=== PATIENT | female | born 1935 | race Caucasian/White ===

== ENCOUNTER 2020-09-04 13:02 | Day surgery (SDC) | payer MEDICARE ==
[2020-08-30 12:43] LABS: Hemoglobin 9.9 g/dL (12.2-16.2); Mean Corpuscular Hemoglobin 30.3 pg (28.0-32.0); Mean Corpuscular Volume 91.7 fL (80.0-100.0); Red Blood Cells 3.27 10^6/uL (4.0-5.20); Red Cell Distribution Width 19.5 % (11.8-14.3); White Blood Cell 17.8 10^3/uL (4.4-10.8)
[2020-08-30 12:44] LABS: Basophils % (manual) 0 (0.0-2.0); Blast Cells 0; Monocytes % (manual) 0 (0-12); Promyelocytes % 0; Reactive Lymphocytes 0
[2020-08-30 12:50] LABS: Urine Bacteria NONE SEEN /hpf (None Seen); Urine Blood Negative /uL (Negative); Urine Specific Gravity 1.009 (1.001-1.035); Urine WBC 1 /hpf (0 - 5)
[2020-08-30 13:09] LABS: Band Neutrophils % (manual) 3; Eosinophils % (manual) 2 (0-7); Lymphocytes % (manual) 6 (10.0-50.0); Metamyelocytes % 1; Myelocytes % 4
[2020-08-30 13:19] LABS: Albumin 3.6 g/dL (3.4-5.0); Calcium 8.5 mg/dL (8.5-10.1); Potassium 3.6 mmol/L (3.5-5.1)
[2020-08-30 13:22] LABS: BUN/Creatinine Ratio 16.3; Bilirubin, Total 0.9 mg/dL (0.2-1.0); Total Protein 7.7 g/dL (6.4-8.2)
[~2020-09-04] VITALS: Ht 152.4 cm; Wt 61.2 kg
[~2020-09-04 13:02] MED LIST: ALEN70TA74 PO; ALL100T PO; ASPI-231 PO; CALC667C5 PO; FOLITAB22 PO; FURO20TA3 PO; HYDR50TA15 PO; IBUP800T27 PO; LEVO25TA6 PO; LOVA40TA72 PO; METO1TAB77 PO; ROPI1TAB4 PO
[2020-09-04] MEDS: MIDAZOLAM HCL 5 MG/ML-1ML VIAL ONE ×2 (14:42→14:45)
[2020-09-04] MEDS: fentaNYL CITRATE 100 MCG/2 ML VL ONE ×2 (14:42→14:45)
[2020-09-04 15:30] VITALS: BP 176/64
[2020-09-04] MEDS ORDERED: diphenhdrAMINE HCL 50 MG/1 ML VL ONE (16:42)
== END 2020-09-04 15:45 | disposition home or self-care (01) ==
LOC: GI 13:02
PROVIDERS: ATTEND Internal Medicine Gastroenterology
DX: R19.4 Change in bowel habit (principal); K57.30 Diverticulosis of large intestine without perforation or abscess without bleeding; K64.8 Other hemorrhoids; J45.909 Unspecified asthma, uncomplicated; E78.5 Hyperlipidemia, unspecified; I10 Essential (primary) hypertension; Z79.82 Long term (current) use of aspirin; Z20.822 Contact with and (suspected) exposure to COVID-19; Z79.899 Other long term (current) drug therapy; Z88.0 Allergy status to penicillin
CPT/HCPCS: 36415; 45378; 80053; 81001; 85007; 85027; J1200; J2250; J3010; J7030; U0003; G0500

== ENCOUNTER 2021-05-28 19:38 | Emergency (ER) | payer MEDICARE ==
[~2021-05-28] VITALS: Ht 152.4 cm; Wt 59.0 kg
[~2021-05-28 19:38] MED LIST changes: -ASPI-231 PO; +ASPI1TAB20 PO
[2021-05-28 20:52] LABS: Hemoglobin 11.9 g/dL (12.2-16.2); Mean Corpuscular Hemoglobin 29.9 pg (28.0-32.0); Mean Corpuscular Hgb Conc. 33.1 g/dL (32.0-36.0); Mean Corpuscular Volume 90.3 fL (80.0-100.0); Red Blood Cells 3.99 10^6/uL (4.0-5.20); Red Cell Distribution Width 20.7 % (11.8-14.3); White Blood Cell 19.3 10^3/uL (4.4-10.8)
[2021-05-28 20:54] LABS: Albumin 4.1 g/dL (3.4-5.0); BUN/Creatinine Ratio 34.6; Calcium 8.8 mg/dL (8.5-10.1); Magnesium 2.3 mg/dL (1.6-2.6); Potassium 3.7 mmol/L (3.5-5.1)
[2021-05-28 20:55] LABS: Blast Cells 0; Promyelocytes % 0; Reactive Lymphocytes 0
[2021-05-28 20:57] LABS: Bilirubin, Total 0.5 mg/dL (0.2-1.0); Total Protein 8.3 g/dL (6.4-8.2)
[2021-05-28 21:17] LABS: Band Neutrophils % (manual) 3; Basophils % (manual) 2 (0.0-2.0); Eosinophils % (manual) 5 (0-7); Lymphocytes % (manual) 4 (10.0-50.0); Metamyelocytes % 1; Monocytes % (manual) 5 (0-12); Myelocytes % 4
[2021-05-28] MEDS ORDERED: IOHEXOL 300 MG/ML 100ML BOTTLE IJ ONE (22:33)
[2021-05-28 23:28] LABS: Urine Bacteria FEW /hpf (None Seen); Urine Blood Negative /uL (Negative); Urine Hyaline Cast FEW /lpf (0 - 2); Urine Specific Gravity 1.013 (1.001-1.035); Urine WBC 50 /hpf (0 - 5); Urine WBC Clumps PRESENT /hpf (None Seen)
[2021-05-29] VITALS: BP 152/63
[2021-05-29] MEDS ORDERED: CEPH500C PO (00:27)
== END 2021-05-29 00:40 | disposition home or self-care (01) ==
LOC: ER 19:38
DX: R00.2 Palpitations (principal); N39.0 Urinary tract infection, site not specified; R68.83 Chills (without fever); I11.0 Hypertensive heart disease with heart failure; I50.9 Heart failure, unspecified; E78.5 Hyperlipidemia, unspecified; Z88.0 Allergy status to penicillin
CPT/HCPCS: 36415; 71045; 74177; 80053; 81001; 83735; 84443; 84484; 85007; 85027; 93005; 99285; Q9967

== ENCOUNTER 2021-06-04 14:14 | Emergency (ER) | payer MEDICARE ==
[~2021-06-04] VITALS: Ht 152.4 cm; Wt 59.0 kg
[~2021-06-04 14:14] MED LIST changes: +CEPH500C PO
[2021-06-04 15:29] LABS: Hematocrit 34.9 % (36.0-46.0); Hemoglobin 11.6 g/dL (12.2-16.2); Mean Corpuscular Hemoglobin 29.6 pg (28.0-32.0); Mean Corpuscular Hgb Conc. 33.4 g/dL (32.0-36.0); Mean Corpuscular Volume 88.6 fL (80.0-100.0); Red Blood Cells 3.94 10^6/uL (4.0-5.20); Red Cell Distribution Width 19.7 % (11.8-14.3); White Blood Cell 17.8 10^3/uL (4.4-10.8)
[2021-06-04 15:39] LABS: Basophils % (manual) 0 (0.0-2.0); Blast Cells 0; Metamyelocytes % 0; Myelocytes % 0; Promyelocytes % 0; Reactive Lymphocytes 0
[2021-06-04 15:50] LABS: Albumin 3.5 g/dL (3.4-5.0); BUN/Creatinine Ratio 32.2
[2021-06-04 15:53] LABS: Bilirubin, Total 0.4 mg/dL (0.2-1.0); Total Protein 7.7 g/dL (6.4-8.2)
[2021-06-04 16:10] LABS: Band Neutrophils % (manual) 3; Eosinophils % (manual) 6 (0-7); Lymphocytes % (manual) 12 (10.0-50.0); Monocytes % (manual) 2 (0-12); Potassium 2.8 mmol/L (3.5-5.1)
[2021-06-04] MEDS ORDERED: POTASSIUM EFFERVESENT TAB 25 MEQ PO ONE (16:15)
[2021-06-04 18:06] LABS: Urine Bacteria NONE SEEN /hpf (None Seen); Urine Blood Negative /uL (Negative); Urine Hyaline Cast FEW /lpf (0 - 2); Urine Mucus FEW (None Seen); Urine Specific Gravity 1.012 (1.001-1.035); Urine WBC 14 /hpf (0 - 5)
[2021-06-04] MEDS ORDERED: SODIUM CHLORIDE 0.9% 1,000 ML IVB ONE (18:15)
[2021-06-04] MEDS ORDERED: SULF400T11 PO (19:55)
[2021-06-04] MEDS ORDERED: BISM262C44 PO (19:55)
[2021-06-04] MEDS ORDERED: cefTRIAXone 1GM/50ML D5W 50 ML IV ONE (20:00)
[2021-06-04 21:05] VITALS: BP 143/63
== END 2021-06-04 21:05 | disposition home or self-care (01) ==
LOC: ER 14:14
DX: K52.9 Noninfective gastroenteritis and colitis, unspecified (principal); N39.0 Urinary tract infection, site not specified; E87.6 Hypokalemia; E03.9 Hypothyroidism, unspecified; E11.21 Type 2 diabetes mellitus with diabetic nephropathy; I13.0 Hypertensive heart and chronic kidney disease with heart failure and stage 1 through stage 4 chronic kidney disease, or unspecified chronic kidney disease; E11.22 Type 2 diabetes mellitus with diabetic chronic kidney disease; N18.30 Chronic kidney disease, stage 3 unspecified; I50.9 Heart failure, unspecified; M10.9 Gout, unspecified; Z90.49 Acquired absence of other specified parts of digestive tract; Z79.82 Long term (current) use of aspirin; Z79.1 Long term (current) use of non-steroidal anti-inflammatories (NSAID); Z79.899 Other long term (current) drug therapy; Z88.0 Allergy status to penicillin
CPT/HCPCS: 36415; 71045; 80053; 81001; 83690; 83735; 84443; 85007; 85027; 93005; 96361; 96365; 99285; J0696; J7030

== ENCOUNTER 2021-06-09 11:20 | Inpatient (IN) | payer MEDICARE ==
[~2021-06-09] VITALS: Ht 152.4 cm; Wt 76.8 kg
[~2021-06-09 11:20] MED LIST changes: +BISM262C44 PO; +SULF400T11 PO
[2021-06-09] MEDS ORDERED: SODIUM CHLORIDE 0.9% 500 ML IV ONE (12:00)
[2021-06-09 12:58] LABS: Urine Bacteria FEW /hpf (None Seen); Urine Blood Negative /uL (Negative); Urine Hyaline Cast FEW /lpf (0 - 2); Urine Specific Gravity 1.016 (1.001-1.035); Urine WBC 23 /hpf (0 - 5)
[2021-06-09 13:19] LABS: Basophils # (auto) 0.1 10 ^3/uL (0-0.2); Eosinophils # (auto) 0.2 10 ^3/uL (0-0.8); Eosinophils % (auto) 1.2 % (0.0-7.0); Hematocrit 32.9 % (36.0-46.0); Hemoglobin 10.8 g/dL (12.2-16.2); Lymphocytes # (auto) 0.2 10 ^3/uL (0.4-5.4); Lymphocytes % (auto) 1.7 % (10.0-50.0); Mean Corpuscular Hemoglobin 29.4 pg (28.0-32.0); Mean Corpuscular Hgb Conc. 32.8 g/dL (32.0-36.0); Mean Corpuscular Volume 89.5 fL (80.0-100.0); Monocytes # (auto) 0.5 10 ^3/uL (0-1.3); Monocytes % (auto) 3.9 % (0.0-12.0); Neutrophils # (auto) 12.8 10 ^3/uL (1.6-8.6); Neutrophils % (auto) 92.2 % (37.0-80.0); Nucleated Red Blood Cells % 0.1 %; Red Blood Cells 3.67 10^6/uL (4.0-5.20); Red Cell Distribution Width 19.7 % (11.8-14.3); White Blood Cell 13.8 10^3/uL (4.4-10.8)
[2021-06-09 13:44] LABS: Albumin 3.3 g/dL (3.4-5.0); BUN/Creatinine Ratio 17.9; Calcium 8.1 mg/dL (8.5-10.1)
[2021-06-09 13:46] LABS: Bilirubin, Total 1.3 mg/dL (0.2-1.0); Total Protein 7.6 g/dL (6.4-8.2)
[2021-06-09] MEDS ORDERED: levoFLOXacin 500MG 100 ML IV ONE (14:00)
[2021-06-09 15:47] LABS: Cholesterol 83 mg/dL (< 200)
[2021-06-09 15:49] LABS: HDL Cholesterol 15 mg/dL (40-59); LDL Cholesterol 49 mg/dL (< 100); Triglycerides 162 mg/dL (< 150)
[2021-06-09] MEDS ORDERED: DEXTROSE (50%) 50ML SYRG IV PRN (18:15)
[2021-06-09] MEDS ORDERED: FUROSEMIDE 100 MG/10ML VIAL IV ONE (18:15)
[2021-06-09] MEDS ORDERED: CIPROFLOXACIN 400MG/200ML 200 ML IV ONE (18:45)
[2021-06-09] MEDS ORDERED: CIPROFLOXACIN 400MG/200ML 200 ML IV SCH (18:46)
[2021-06-09] MEDS: ACCU-CHEK COMFORT CURVE STRIP VI SCH (22:00)
[2021-06-09] MEDS ORDERED: InsuLIN REG 1unit/0.01ml Soln (100units/ml) SC SCH (22:00)
[2021-06-09 22:30] VITALS: BP 134/52
[2021-06-09 23:00] VITALS: BP 134/52
[2021-06-09] MEDS: ATORVASTATIN 20 MG TAB PO SCH (23:15)
[2021-06-10] VITALS (7 sets, daily range): BP systolic 112–124; BP diastolic 47–64
[2021-06-10] MEDS: LEVOTHYROXINE SODIUM 25 MCG TAB PO SCH (06:13)
[2021-06-10] MEDS: FUROSEMIDE 100 MG/10ML VIAL IV SCH ×2 (06:14→17:16)
[2021-06-10 06:21] LABS: Basophils # (auto) 0.1 10 ^3/uL (0-0.2); Basophils % (auto) 1.1 % (0.0-2.0); Eosinophils # (auto) 0.2 10 ^3/uL (0-0.8); Eosinophils % (auto) 2.3 % (0.0-7.0); Hematocrit 25.8 % (36.0-46.0); Hemoglobin 8.9 g/dL (12.2-16.2); Lymphocytes # (auto) 0.2 10 ^3/uL (0.4-5.4); Lymphocytes % (auto) 1.5 % (10.0-50.0); Mean Corpuscular Hemoglobin 30.7 pg (28.0-32.0); Mean Corpuscular Hgb Conc. 34.4 g/dL (32.0-36.0); Mean Corpuscular Volume 89.4 fL (80.0-100.0); Monocytes # (auto) 0.5 10 ^3/uL (0-1.3); Monocytes % (auto) 4.4 % (0.0-12.0); Neutrophils # (auto) 9.6 10 ^3/uL (1.6-8.6); Neutrophils % (auto) 90.7 % (37.0-80.0); Red Blood Cells 2.89 10^6/uL (4.0-5.20); Red Cell Distribution Width 19.5 % (11.8-14.3); White Blood Cell 10.6 10^3/uL (4.4-10.8)
[2021-06-10] MEDS: InsuLIN REG 1unit/0.01ml Soln (100units/ml) SC SCH ×2 (06:28→11:53)
[2021-06-10] MEDS: ACCU-CHEK COMFORT CURVE STRIP VI SCH ×2 (06:29→11:54)
[2021-06-10 06:38] LABS: Albumin 2.6 g/dL (3.4-5.0); Calcium 7.4 mg/dL (8.5-10.1); Potassium 3.5 mmol/L (3.5-5.1)
[2021-06-10 06:43] LABS: BUN/Creatinine Ratio 20.5; Total Protein 6.6 g/dL (6.4-8.2)
[2021-06-10] MEDS ORDERED: CIPROFLOXACIN 400MG/200ML 200 ML IV SCH (09:00)
[2021-06-10] MEDS: ASPirin-EC 81 mg tab PO SCH (09:57)
[2021-06-10] MEDS: SODIUM CHLORIDE 0.9% 1,000 ML IV SCH (13:30)
[2021-06-10] MEDS ORDERED: cefTRIAXone 1GM/50ML D5W 50 ML IV ONE (15:45)
[2021-06-10] MEDS: ATORVASTATIN 20 MG TAB PO SCH (21:17)
[2021-06-11] VITALS (7 sets, daily range): BP systolic 112–153; BP diastolic 51–73
[2021-06-11] MEDS: SODIUM CHLORIDE 0.9% 1,000 ML IV SCH ×2 (05:33→16:07)
[2021-06-11] MEDS: LEVOTHYROXINE SODIUM 25 MCG TAB PO SCH (06:00)
[2021-06-11 06:32] LABS: BUN/Creatinine Ratio 24.6; Calcium 7.6 mg/dL (8.5-10.1); Potassium 3.9 mmol/L (3.5-5.1)
[2021-06-11] MEDS: cefTRIAXone 1GM/50ML D5W 50 ML IV SCH (10:09)
[2021-06-11] MEDS: ASPirin-EC 81 mg tab PO SCH (10:10)
[2021-06-11] MEDS ORDERED: SODIUM CHLORIDE 0.9% 1,000 ML IV SCH (16:30)
[2021-06-11] MEDS: NIFEdipine ER 30 MG TAB PO SCH (16:30)
[2021-06-11] MEDS ORDERED: METOPROLOL TARTRATE 50 MG TAB PO SCH (22:00)
[2021-06-11] MEDS: ATORVASTATIN 20 MG TAB PO SCH (22:05)
[2021-06-11] MEDS ORDERED: CALCIUM CARB 500 MG CHEW TAB PO PRN (22:45)
[2021-06-12 05:15] VITALS: BP 105/46
[2021-06-12] MEDS: LEVOTHYROXINE SODIUM 25 MCG TAB PO SCH (06:06)
[2021-06-12 06:10] LABS: Potassium 4.5 mmol/L (3.5-5.1)
[2021-06-12 06:16] LABS: BUN/Creatinine Ratio 26.5; Calcium 8.2 mg/dL (8.5-10.1)
[2021-06-12 09:00] VITALS: BP 145/57
[2021-06-12] MEDS: cefTRIAXone 1GM/50ML D5W 50 ML IV SCH (09:40)
[2021-06-12] MEDS: ASPirin-EC 81 mg tab PO SCH (09:41)
[2021-06-12] MEDS: NIFEdipine ER 30 MG TAB PO SCH (09:46)
[2021-06-12] MEDS ORDERED: CEFD300C2 PO (10:58)
[2021-06-12 12:05] VITALS: BP 139/42
== END 2021-06-12 13:53 | disposition home health service (06) | DRG 683 ==
LOC: ER 11:20 → OVERFLOW 18:09 → WEST WING 22:00
PROVIDERS: ADMIT Registered Nurse; ATTEND Internal Medicine
DX: N17.9 Acute kidney failure, unspecified (principal); I13.0 Hypertensive heart and chronic kidney disease with heart failure and stage 1 through stage 4 chronic kidney disease, or unspecified chronic kidney disease; N39.0 Urinary tract infection, site not specified; E87.1 Hypo-osmolality and hyponatremia; E86.0 Dehydration; E03.9 Hypothyroidism, unspecified; E11.22 Type 2 diabetes mellitus with diabetic chronic kidney disease; E78.5 Hyperlipidemia, unspecified; I27.20 Pulmonary hypertension, unspecified; E11.65 Type 2 diabetes mellitus with hyperglycemia; M10.9 Gout, unspecified; N18.32 Chronic kidney disease, stage 3b; Z79.899 Other long term (current) drug therapy; Z82.49 Family history of ischemic heart disease and other diseases of the circulatory system; Z82.5 Family history of asthma and other chronic lower respiratory diseases; Z90.49 Acquired absence of other specified parts of digestive tract; Z88.0 Allergy status to penicillin; D64.9 Anemia, unspecified; I50.9 Heart failure, unspecified
CPT/HCPCS: 36415; 71046; 76775; 80048; 80053; 80061; 81001; 82962; 83036; 83735; 83880; 84443; 84484; 85025; 87040; 87086; 93005; 93306; 96361; 96365; 96375; G0378; J0696; J1815; J1956